=== PATIENT | female | born 1990 | race Hispanic/Latino ===

== ENCOUNTER 2018-01-10 03:58 | Emergency (ER) | payer SELFPAY ==
[2018-01-10 04:50] LABS: Hematocrit 41.9 % (30.3-42.9); Hemoglobin 14.4 gm/dl (10.1-14.3); Mean Corpuscular HGB Conc 34 % (30-34); Mean Corpuscular Hemoglobin 32 pg (28-32); Mean Corpuscular Volume 93 fl (79-97); Platelet Count 383 K/mm3 (140-440); Red Blood Count 4.52 M/mm3 (3.65-5.03); Red Cell Distribution Width 12.3 % (13.2-15.2)
[2018-01-10] MEDS ORDERED: KEPPRA 1,000 MG/NS 0.75% 100ML 1,000 MG/100 ML BAG IV ONE (04:59)
[2018-01-10 06:22] LABS: BUN/Creatinine Ratio 27; Blood Urea Nitrogen 16 mg/dL (7-17); Calcium 9.9 mg/dL (8.4-10.2); Hemolysis Index 113
[2018-01-10] MEDS ORDERED: PROVENTIL IH ONE (06:27)
--- NOTE | 2018-01-10 07:02 | Emergency Department Report ---
ED Seizure HPI - General Chief Complaint: Seizure Stated Complaint: SEIZURE Time Seen by Provider: 01/10/18 06:45 Source: patient, EMS Mode of arrival: Stretcher Limitations: No Limitations - History of Present Illness Initial Comments: Patient is a 27-year-old male that presents emergency room for evaluation of a seizure. Patient states that she's had seizures for the past 1-2 years but was told that she needed any antiseizure medications for her type of seizures. Patient hasn't seen neurologist since the initial consult. The patient is A&O 4 at this time. Patient was brought in by EMS and given Ativan 2 mg IM in route. No further seizure activity was noted. Patient is currently a patient over at [facility] for a 1013 patient has a sitter with her. Patient also complains of abdominal pain in her left lower quadrant radiating to her left flank. Patient states the pain is constant. He states the pain is worse with movement and better with rest. Patient states she has a history of chronic pancreatitis/endometriosis. Patient states the pain in her abdomen as a 10 out of 10 MD Complaint: seizure -: Sudden Description of Episode: tonic-clonic movement -: second(s) Witnessed:: Yes Trauma: No Seizure History: known seizure disorder Place: other ([facility]) Possible Precipitating Event: none Associated Symptoms: denies other symptoms. denies: chest pain, confusion, cough, diaphoresis, fever/chills, loss of appetite, malaise, rash, shortness of breath, syncope, weakness, tongue injury, shoulder dislocation Treatments Prior to Arrival: benzodiazepines - Related Data Previous Rx's Medication Instructions Recorded Last Taken Type Ibuprofen [Ibu] 800 mg PO Q8HR PRN #15 tablet 01/10/18 Unknown Rx Sulfamethoxazole/Trimethoprim 1 each PO BID 10 Days #20 tablet 01/10/18 Unknown Rx [Bactrim DS TAB] Allergies Allergy/AdvReac Type Severity Reaction Status Date / Time morphine Allergy Itching Verified 01/10/18 04:14 ED Review of Systems ROS: Stated complaint: SEIZURE Other details as noted in HPI Constitutional: denies: chills, fever Eyes: denies: eye pain, eye discharge, vision change ENT: denies: ear pain, throat pain Respiratory: denies: cough, shortness of breath, wheezing Cardiovascular: denies: chest pain, palpitations Endocrine: no symptoms reported Gastrointestinal: abdominal pain. denies: nausea, diarrhea Genitourinary: denies: urgency, dysuria, discharge Musculoskeletal: denies: back pain, joint swelling, arthralgia Skin: denies: rash, lesions Neurological: denies: headache, weakness, paresthesias Psychiatric: denies: anxiety, depression Hematological/Lymphatic: denies: easy bleeding, easy bruising ED Past Medical Hx - Past Medical History Previous Medical History?: Yes Hx Seizures: Yes Additional medical history: pancreatitis, ovarian cysts, endometriosis - Surgical History Past Surgical History?: Yes Hx Cholecystectomy: Yes Additional Surgical History: 2 stents sphinter of Darshan - Family History Family history: no significant - Social History Smoking Status: Never Smoker Substance Use Type: None - Medications Home Medications: Home Medications Medication Instructions Recorded Confirmed Last Taken Type Ibuprofen [Ibu] 800 mg PO Q8HR PRN #15 tablet 01/10/18 Unknown Rx Sulfamethoxazole/Trimethoprim 1 each PO BID 10 Days #20 tablet 01/10/18 Unknown Rx [Bactrim DS TAB] ED Physical Exam - General Limitations: No Limitations General appearance: alert, in no apparent distress - Head Head exam: Present: atraumatic, normocephalic - Eye Eye exam: Present: normal appearance, PERRL Pupils: Present: normal accommodation - ENT ENT exam: Present: mucous membranes moist - Neck Neck exam: Present: normal inspection - Respiratory Respiratory exam: Present: normal lung sounds bilaterally. Absent: respiratory distress - Cardiovascular Cardiovascular Exam: Present: regular rate, normal rhythm. Absent: systolic murmur, diastolic murmur, rubs, gallop - GI/Abdominal GI/Abdominal exam: Present: soft, tenderness (left lower quadrant/left flank tenderness to palpation), normal bowel sounds - Extremities Exam Extremities exam: Present: normal inspection - Back Exam Back exam: Present: normal inspection - Neurological Exam Neurological exam: Present: alert, oriented X3 - Psychiatric Psychiatric exam: Present: normal affect, normal mood - Skin Skin exam: Present: warm, dry, intact, normal color. Absent: rash ED Course Vital Signs 01/10/18 01/10/18 01/10/18 04:15 05:00 06:00 Temperature 97.7 F Pulse Rate 109 H 114 H 118 H Pulse Rate [ Posterior] Respiratory 16 15 16 Rate Respiratory Rate [Posterior ] Blood Pressure 124/80 126/86 129/87 Blood Pressure 124/80 [Left] O2 Sat by Pulse 98 Oximetry 01/10/18 01/10/18 01/10/18 06:35 06:51 07:00 Temperature Pulse Rate 119 H Pulse Rate [ 82 82 Posterior] Respiratory 20 Rate Respiratory 18 18 Rate [Posterior ] Blood Pressure 121/74 Blood Pressure [Left] O2 Sat by Pulse Oximetry 01/10/18 01/10/18 10:00 10:30 Temperature Pulse Rate Pulse Rate [ Posterior] Respiratory 18 18 Rate Respiratory Rate [Posterior ] Blood Pressure Blood Pressure [Left] O2 Sat by Pulse Oximetry - Reevaluation(s) Reevaluation #1: Patient presents to emergency room for seizure activity at a psychiatric facility and was sent here for evaluation. Patient also complains of abdominal pain and we will add a abdominal workup 01/10/18 06:50 Reevaluation #2: Discussed all results with patient. Patient voiced understanding. 01/10/18 12:30 She picked up by EMS. Patient did not have any seizure activity her entire stay. Patient will be transported back to [facility] 01/10/18 15:30 ED Medical Decision Making - Lab Data Result diagrams: 01/10/18 04:36 01/10/18 04:36 - Radiology Data Radiology results: report reviewed FINDINGS: Lung bases: Normal. Liver: Normal. Biliary system: Cholecystectomy. No biliary dilatation. Pancreas: Normal. Spleen: Normal. Kidneys/ureters/bladder: Normal. Adrenal glands: Normal. Aorta: Normal. Intestines: Normal. Appendix: Normal. Pelvic viscera: Normal. Ascites: None. Adenopathy: None. Musculoskeletal: Normal. IMPRESSION: Unremarkable CT scan of the abdomen and pelvis without contrast. Transcribed By: TTR Dictated By: SAM GRUBER JR, MD Electronically Authenticated By: SAM GRUBER JR, MD Signed Date/Time: 01/10/18 1215 - Medical Decision Making Patient is a 27-year-old female presents emergency room with seizure activity. Patient has not had any seizure activity in the ER. 1 patient presents to the ER she also complained of abdominal pain. Patient states she had a history of endometriosis and chronic pancreatitis. Patient's CT scan was negative. Patient's labs are unremarkable except for a UTI. Patient will be treated accordingly. Patient will be discharged and transferred back to [facility]. Patient remain on a 1013 while in the ER will continue to remain on 1013 until transferred back to [facility]. Patient is medically stable at this time. Patient is stable for discharge. Patient given all discharge instructions. Patient given return to ER instructions. Struck to follow-up with her neurologist for further evaluation and management of her seizure activity. Patient voiced understanding of instructions. - Differential Diagnosis sz. pain. abd pain. uti. Critical care attestation.: If time is entered above; I have spent that time in minutes in the direct care of this critically ill patient, excluding procedure time. ED Disposition Clinical Impression: Seizure-like activity Abdominal pain Qualifiers: Abdominal location: lower abdomen, unspecified Qualified Code(s): R10.30 - Lower abdominal pain, unspecified UTI (urinary tract infection) Qualifiers: Urinary tract infection type: acute cystitis Hematuria presence: with hematuria Qualified Code(s): N30.01 - Acute cystitis with hematuria Disposition: DC/TX-65 PSY HOSP/PSY UNIT Is pt being admited?: No Does the pt Need Aspirin: No Condition: Stable Instructions: Urinary Tract Infection in Women (ED), Non-epileptic Seizures (ED ), Abdominal Pain (ED) Additional Instructions: Patient to follow up with primary care 2-3 days. Patient to follow-up with neurologist in 2-3 days. Patient to return to ER if condition worsens. Patient to increase water. Patient to continue all meds. Patient to take meds as directed. Patient to rest. No driving for patient. Patient is to take Tylenol and ibuprofen when necessary for pain Prescriptions: Ibuprofen [Ibu] 800 mg PO Q8HR PRN #15 tablet PRN Reason: Pain , Severe (7-10) Sulfamethoxazole/Trimethoprim [Bactrim DS TAB] 1 each PO BID 10 Days #20 tablet Referrals: PRIMARY CARE, [Primary Care Provider] - 2-3 Days Time of Disposition: 12:33
[2018-01-10 07:34] LABS: Lipase 23 units/L (13-60)
[2018-01-10] MEDS ORDERED: DILAUDID IM ONE (09:34)
[2018-01-10 09:42] LABS: Bacteria,Urine 2+ /HPF (Negative); Bilirubin,Urine NEG (Negative); Blood,Urine NEG (Negative); Color,Urine Amber (Yellow); Hyaline Casts,Urine 5 /LPF; Mucus,Urine 3+ /HPF; Urobilinogen,Urine < 2.0 mg/dL (<2.0)
[2018-01-10 11:28] LABS: HCG Qualitative,Urine Negative (Negative)
--- NOTE | 2018-01-10 12:17 | Cat Scan Report ---
CT ABDOMEN PELVIS WITHOUT CONTRAST: HISTORY: abdominal pain. COMPARISON: none. TECHNIQUE: Helical CT in 1.25mm intervals without IV contrast. Sagittal and coronal reconstructions. FINDINGS: Lung bases: Normal. Liver: Normal. Biliary system: Cholecystectomy. No biliary dilatation. Pancreas: Normal. Spleen: Normal. Kidneys/ureters/bladder: Normal. Adrenal glands: Normal. Aorta: Normal. Intestines: Normal. Appendix: Normal. Pelvic viscera: Normal. Ascites: None. Adenopathy: None. Musculoskeletal: Normal. IMPRESSION: Unremarkable CT scan of the abdomen and pelvis without contrast.
[2018-01-10 15:41] VITALS: BP 122/63
== END 2018-01-10 15:40 ==
LOC: ED 03:58
DX: R56.9 Unspecified convulsions (principal); N30.01 Acute cystitis with hematuria; Z90.49 Acquired absence of other specified parts of digestive tract; Z88.6 Allergy status to analgesic agent
CPT/HCPCS: 36415; 74176; 80048; 81001; 81025; 82150; 83690; 85027; 94640; 96365; 96366; 96372; 99285; J1170; J1953